=== PATIENT | male | born 1995 | race Caucasian/White ===

== ENCOUNTER 2019-02-03 06:41 | Emergency (ER) | payer BC ==
[~2019-02-03] VITALS: Ht 180.3 cm; Wt 70.3 kg
[2019-02-03 07:07] VITALS: Ht 180.3 cm; Wt 70.3 kg
[2019-02-03 07:33] VITALS: BP 110/72
== END 2019-02-03 07:33 | disposition home or self-care (01) ==
LOC: ED 06:41
DX: Z90.89 Acquired absence of other organs (principal); R04.1 Hemorrhage from throat